=== PATIENT | female | born 1970 | race Caucasian/White ===

== ENCOUNTER 2019-01-11 10:24 | Inpatient (IN) | payer BC ==
[2019-01-05 12:31] VITALS: BMI 44.8
[~2019-01-11 10:24] MED LIST: BUPIVACAINE HCL/PF 0.25% (2.5MG/ML) 10 ML VIAL IJ ONE
[2019-01-11] MEDS ORDERED: BUPIVACAINE HCL/PF 2.5 MG/ML - 30 ML VIAL IJ ONE (12:24)
[2019-01-11] MEDS ORDERED: BUPIVACAINE HCL/PF (5 MG/ML) 30 ML VIAL IJ ONE (12:29)
[2019-01-11] MEDS ORDERED: MIDAZOLAM HCL 2 MG/2 ML SINGLE DOSE VIAL ONE (12:29)
[2019-01-11] MEDS ORDERED: DESFLURANE GAS 240 ML BOTTLE IH ONE (12:47)
[2019-01-11] MEDS ORDERED: ROCURONIUM BROMIDE 50 MG/5 ML VIAL ONE ×2 (12:48→14:11)
[2019-01-11] MEDS ORDERED: LIDOCAINE HCL/PF 2% SDV 5ML VIAL ONE (12:48)
[2019-01-11] MEDS ORDERED: fentaNYL CITRATE 250 MCG/5 ML VIAL ONE (12:48)
[2019-01-11] MEDS ORDERED: DEXAMETHASONE SOD PHOSPHATE 4 MG/1 ML VIAL ONE (13:26)
[2019-01-11] MEDS ORDERED: ONDANSETRON 4 MG/2 ML VIAL ONE (13:26)
[2019-01-11] MEDS ORDERED: KETOROLAC TROMETHAMINE 30 MG/1 ML VIAL ONE (13:26)
[2019-01-11] MEDS ORDERED: ceFAZolin SODIUM 1 GM VIAL ONE (13:26)
[2019-01-11] MEDS ORDERED: GLYCOPYRROLATE 0.2 MG/1 ML VIAL ONE ×3 (14:04)
[2019-01-11] MEDS ORDERED: NEOSTIGMINE METHYLSULFATE 0.5 MG/ML - 10 ML MDV ONE (14:04)
[2019-01-11] MEDS ORDERED: LIDOCAINE HCL 2% 100 MG/5 ML DISP.SYRIN ONE (14:35)
[2019-01-11] MEDS ORDERED: BUPIVACAINE HCL/PF 0.25% (2.5MG/ML) 10 ML VIAL IJ ONE (14:49)
[2019-01-11] MEDS ORDERED: ONDANSETRON 4 MG/2 ML VIAL IVPUSH PRN (15:11)
[2019-01-11] MEDS ORDERED: morphine CARPU-JECT 2 MG/1 ML DISP.SYRIN IVPUSH PRN (15:13)
[2019-01-11] MEDS ORDERED: METOCLOPRAMIDE HCL INJECTION 10 MG/2 ML VIAL IVPUSH PRN (15:14)
[2019-01-11] MEDS ORDERED: SODIUM CHLORIDE 1,000 ML IV SCH (15:15)
--- NOTE | 2019-01-11 15:22 | OP ---
Operative Note - Note: Operative Date: 01/11/19 Pre-Operative Diagnosis: Morbid Obesity Operation: Laparoscopic Vertical Sleeve Gastrectomy. Wedge Biopsy of left lobe of liver. Laparoscopic lysis of adhesions. Diagnostic Laparoscopy Findings: Greater curve sleeve gastrectomy performed with #[address] Wedge biopsy performed on enlarged left lobe of liver Adhesions lysed laparoscopically in epigastrium and left upper quadrant Post-Operative Diagnosis: Same as Pre-op (Hepatomegaly; Abdominal adhesions) Surgeon: Arden Brown Sofa Inspector: Bill Graham Anesthesia: General Specimens Removed: Greater curve of stomach. Wedge biopsy of left lobe of liver Estimated Blood Loss (mls): 50 Operative Report Dictated: Yes
[2019-01-11] MEDS ORDERED: PROMETHAZINE HCL 25 MG/1 ML VIAL IVPB PRN (15:33)
[2019-01-11] MEDS ORDERED: METOCLOPRAMIDE HCL INJECTION 10 MG/2 ML VIAL IVPUSH ONE (16:10)
[2019-01-11 16:56] LABS: ALBUMIN 3.8 g/dl (3.4-5.0); BILIRUBIN,TOTAL 0.7 mg/dl (0.2-1); CALCIUM 8.8 mg/dl (8.5-10); CREATININE 0.7 mg/dl (0.55-1.3); POTASSIUM 4.4 mmol/L (3.5-5.1)
[2019-01-11 17:51] LABS: HEMATOCRIT 44.2 % (32.4-45.2); HEMOGLOBIN 14.6 GM/dL (10.7-15.3); MCH 30.1 pg (25.7-33.7); MEAN CELL VOLUME 91.3 fl (80-96); MEAN PLT VOLUME 8.4 fl (7.5-11.1); PLATELET COUNT 210 K/MM3 (134-434); RBC 4.84 M/mm3 (3.60-5.2); RDW 13.8 % (11.6-15.6); WHITE BLOOD COUNT 14.4 K/mm3 (4.0-10.0)
[2019-01-11] MEDS ORDERED: HYDROmorphone HCL CARPU-JECT 1 MG/1 ML DISP.SYRIN IVPB PRN (18:25)
[2019-01-11] MEDS: ENOXAPARIN NA (PORCINE) 40 MG/0.4 ML DISP.SYRIN SQ SCH (21:45)
[2019-01-11] MEDS: FAMOTIDINE 20 MG/50 ML IVPB 20 MG/50 ML MG IVPB SCH (21:45)
[2019-01-12 09:07] LABS: ALBUMIN 3.4 g/dl (3.4-5.0); BILIRUBIN,TOTAL 0.8 mg/dl (0.2-1); CALCIUM 8.5 mg/dl (8.5-10); CREATININE 0.5 mg/dl (0.55-1.3); POTASSIUM 4.5 mmol/L (3.5-5.1); TOT PROT 6.4 g/dl (6.4-8.2)
[2019-01-12] MEDS: ENOXAPARIN NA (PORCINE) 40 MG/0.4 ML DISP.SYRIN SQ SCH (09:25)
[2019-01-12] MEDS: FAMOTIDINE 20 MG/50 ML IVPB 20 MG/50 ML MG IVPB SCH (09:25)
[2019-01-12 10:22] VITALS: BP 142/63; PULSE 60; TEMP 98.7
[2019-01-12 10:33] LABS: MCHC 33.2 g/dl (32.0-36.0); MEAN PLT VOLUME 8.6 fl (7.5-11.1); RDW 13.8 % (11.6-15.6)
[2019-01-12 10:36] LABS: HEMATOCRIT 41.4 % (32.4-45.2); HEMOGLOBIN 13.8 GM/dL (10.7-15.3); MCH 30.4 pg (25.7-33.7); MEAN CELL VOLUME 91.5 fl (80-96); PLATELET COUNT 205 K/MM3 (134-434); RBC 4.52 M/mm3 (3.60-5.2); WHITE BLOOD COUNT 12.9 K/mm3 (4.0-10.0)
[2019-01-12] MEDS ORDERED: ACETAMINOPHEN 325 MG TABLET (FP) PO PRN (12:10)
[2019-01-12] MEDS ORDERED: oxyCODONE HCL 5 MG TABLET PO PRN (12:10)
[2019-01-12] MEDS ORDERED: SODIUM CHLORIDE 1,000 ML IV SCH (12:15)
--- NOTE | 2019-01-12 12:16 | PN ---
Progress Note (short form) - Note Progress Note: POD#1 Afebrile; VSS Pt OOB in chair No N/V Tolerating PO clear liquids-2 oz po tid UGI- no leak, no obstruction WBC-12.9 (decreased) H/H-13.8/41.4 (stable) P- PO clear liquids- 2 oz po tid D/C pt home- instructions given to pt and F/U in office 01/20/2019
--- NOTE | 2019-01-12 17:54 | OP ---
DATE OF OPERATION: 01/11/2019 PREOPERATIVE DIAGNOSIS: Morbid obesity. POSTOPERATIVE DIAGNOSES: 1. Morbid obesity. 2. Hepatomegaly. 3. Abdominal adhesion. PROCEDURE PERFORMED: 1. Laparoscopic vertical sleeve gastrectomy. 2. Wedge biopsy of the left lobe of the liver. 3. Laparoscopic lysis of adhesions. 4. Diagnostic laparoscopy. OPERATING SURGEON: Arden Brown MD DIETARY SERVICE AIDE: Bill Graham MD ANESTHESIA: General. OPERATIVE PROCEDURE: The patient was brought in to the operating room, placed on the OR table in the supine position. All precautions were taken initially including padding for the back and the feet, and Venodyne boots were placed on both lower extremities. At that point, the abdomen was prepped and draped in the usual manner. A Veress needle was placed in the left upper quadrant and a pneumoperitoneum established. Under direct vision, a number 5 bladeless trocar was placed in the left upper quadrant. Through that trocar, a laparoscopic camera was placed. Immediately upon placing the camera, there was noted to be a large amount of adhesions from the patient's previous surgery. There were adhesions between the omentum and the anterior abdominal wall in the midline in the epigastrium and also in the left upper quadrant. Because of that, a number 5 bladeless trocar was then placed in the right upper quadrant. The adhesions were lysed with blunt dissection with the camera itself. Once they were cleared of the midline, a number 15 bladeless trocar was placed in the midline in the supraumbilical position. This was followed by a number 5 bladeless trocar in the left upper quadrant. The adhesions in the left upper quadrant were then lysed with a laparoscopic instrument, mostly bluntly, but also with a laparoscopic LigaSure device. Once these were completely free and the left upper quadrant port was now free, attention was directed to the liver. A Leighton liver retractor was then placed in the epigastrium to retract left lobe of liver. The left lobe was noted to be extremely enlarged and did not have a smooth appearance like normal. It was decided, therefore, that a biopsy would be performed. The LigaSure device was used to take a triangular-shaped wedge of liver on the inferior surface of the left lobe of liver. This was sent off the field as specimen to Pathology. The parenchyma had minor bleeding that was easily controlled with the LigaSure device. The patient was then placed in a 20-degree reverse Trendelenburg position by Anesthesia. The pylorus was noted on the distal stomach, and from here, 6 cm was measured proximally. At this juncture, the operating surgeon lifted the stomach toward the anterior abdominal wall as the assistant guest services manager surgeon retracted the gastrocolic ligament inferiorly. The LigaSure device was used to dissect the gastrocolic ligament off the greater curve of the stomach. This continued in a superior and vertical direction until a final short gastric vessel in left upper quadrant was divided between the superior pole of the spleen and the proximal fundus. At this juncture, Anesthesia advanced a number 36 bougie. With the bougie held along the lesser curvature, a series of caryl were performed, with the first 2 being black load caryl 6 cm in length along the bougie. This was followed by a series of purple caryl, also 6 cm in length and also along the bougie, until the final staple was fired in the left upper quadrant, and the greater curve was now completely detached from the lesser curve. It should be noted that prior to firing each staple, both the anterior and posterior ramos were checked that they were equal, and then the area of the esophagogastric junction, approximately 1 to 1.5 cm of serosa remained on the anterior and posterior surfaces. At this juncture, saline was placed around the staple line, and Anesthesia inserted air into the bougie, which showed the entire stomach distended down to the pylorus. No obstruction and no leaks were noted. At this juncture, the resected greater curve of stomach was removed through the number 15 trocar site and sent off the field as specimen to Pathology. The number 15 trocar site was then closed with endo-closure device to prevent internal hernia and prevent bleeding. Under direct vision, all trocars removed and pneumoperitoneum released. All trocar sites received 0.25% Marcaine, were closed with 4-0 Biosyn in subcuticular fashion. The number 15 trocar site was first closed with 2-0 Vicryl in the subcutaneous tissue, followed by 4-0 Biosyn in subcuticular fashion. Dressings were applied. Patient awoke from anesthesia and transferred out of the operating room to the recovery room in stable condition. Anesthesia in the case was general. Surgeon: Dr. Brown. Revenue Officer: Dr. Graham. Expected blood loss: 50 mL. Patient transferred to recovery room in stable condition. Vidya [id number]
--- NOTE | 2019-01-13 10:30 | PATH ---
Surgical Pathology Report Patient Name: KIM CIFUENTES Med. Rec. #: [id number] /Age/Gender: 1970 (Age: 48) / F Account: [id number] Location: [facility] MED-SURG Taken: 01/11/2019 Received: 01/11/2019 Reported: 01/13/2019 Physicians: Arden Brown M.D. Specimen(s) Received A: GREATER CURVATURE STOMACH B: LIVER BIOPSY Clinical History Morbid obesity Final Diagnosis A. GREATER CURVATURE STOMACH, LAPAROSCOPIC VERTICAL SLEEVE GASTRECTOMY: SEGMENT OF STOMACH WITH CHRONIC GASTRITIS. IMMUNOSTAINING IS NEGATIVE FOR H. PYLORI ORGANISMS. POSITIVE FOR INTESTINAL METAPLASIA. B. LIVER, BIOPSY: LIVER TISSUE WITH STEATOSIS (20%), DIFFUSE. NO HISTOLOGIC EVIDENCE OF HEPATITIS. NO INCREASE IN FIBROSIS (TRICHROME STAIN) OR IRON (IRON STAIN) DEPOSITION. Electronically Signed Guille Alexander M.D. Gross Description A. Received in formalin, labeled "greater curvature of stomach," is a 68 gram, 17.0 x 2.5 x 1.8 cm. portion of stomach with a stapled margin of resection. The serosa is best-michaud with minimal attached fat. The mucosa is best-pink with normal folds. No mucosal masses are identified. Induction Machine Setter sections are submitted in one cassette. B. Received in formalin labeled "liver biopsy," is a 2.3 x 1.7 x 0.6 cm aggregate of best, irregular portions of tissue, consistent with a liver biopsy. Induction Machine Setter sections are submitted in one cassette. /01/12/2019 saudi01/12/2019
--- NOTE | 2019-01-15 00:33 | DS ---
DATE OF ADMISSION: 01/11/2019 DATE OF DISCHARGE: 01/12/2019 HISTORY OF PRESENT ILLNESS AND HOSPITAL COURSE: The patient is a 48-year-old woman with a history of morbid obesity for many years despite multiple attempts at dietary weight loss. She received nutritional and psychological and medical clearances prior to being admitted for elective sleeve gastrectomy surgery. The patient was admitted to [facility] on January 11, 2019, where a laparoscopic vertical sleeve gastrectomy was performed. The details of the procedure are described in the operative note of that day. Postoperatively, the patient was sent to recovery room where she was stabilized and sent to the second floor nursing station. She remained there overnight, had no signs of any nausea or vomiting, and had normal vital signs through the night. On the morning of January 12, 2019, she was sent to x-ray where a Gastrografin swallow showed no signs of leakage from the staple line and no obstruction. She returned to her room where she tolerated 2 ounces of clear liquid well. The patient was given full instructions for discharge as she was ambulating well and had very minimal pain. She was instructed to return to the bariatric office in 8 days for first postop visit. Vidya [id number]
== END 2019-01-12 12:30 | disposition home or self-care (01) | DRG 621 ==
LOC: FM/S 10:24
PROVIDERS: ADMIT Surgery; ATTEND Surgery
PROC: 0FB24ZX Excision of Left Lobe Liver, Percutaneous Endoscopic Approach, Diagnostic (ICD-10-PCS; 2019-01-11)
PROC: 0DNW4ZZ Release Peritoneum, Percutaneous Endoscopic Approach (ICD-10-PCS; 2019-01-11)
PROC: 0WJP4ZZ Inspection of Gastrointestinal Tract, Percutaneous Endoscopic Approach (ICD-10-PCS; 2019-01-11)
PROC: 0DB64Z3 Excision of Stomach, Percutaneous Endoscopic Approach, Vertical (ICD-10-PCS; principal; 2019-01-11 13:35)
DX: E66.01 Morbid (severe) obesity due to excess calories (principal); Z68.41 Body mass index [BMI] 40.0-44.9, adult; K66.0 Peritoneal adhesions (postprocedural) (postinfection); R16.0 Hepatomegaly, not elsewhere classified
CPT/HCPCS: 36415; 74241-TC-FY; 80053; 85027; 88305-TC; 88313-TC; 88342-TC; 94760; J7030

== ENCOUNTER 2020-08-21 09:22 | Inpatient (IN) | payer BC ==
[2020-08-16 11:31] VITALS: BMI 42.0
[~2020-08-21 09:22] MED LIST changes: -BUPIVACAINE HCL/PF 0.25% (2.5MG/ML) 10 ML VIAL IJ ONE; +ceFAZolin SODIUM 1 GM VIAL IVPB ONE
[2020-08-21] MEDS ORDERED: BUPIVACAINE HCL/PF 0.25% (2.5MG/ML) 10 ML VIAL ONE (11:55)
[2020-08-21] MEDS ORDERED: MIDAZOLAM HCL 2 MG/2 ML SINGLE DOSE VIAL ONE (12:26)
[2020-08-21] MEDS ORDERED: fentaNYL CITRATE 250 MCG/5 ML VIAL ONE (12:57)
[2020-08-21] MEDS ORDERED: ROCURONIUM BROMIDE 50 MG/5 ML VIAL ONE (12:57)
[2020-08-21] MEDS ORDERED: PROPOFOL 20 ML ONE ×2 (12:57)
[2020-08-21] MEDS ORDERED: DEXAMETHASONE SOD PHOSPHATE 4 MG/1 ML VIAL ONE (12:57)
[2020-08-21] MEDS ORDERED: ONDANSETRON 4 MG/2 ML VIAL ONE ×2 (12:57→16:26)
[2020-08-21] MEDS ORDERED: CLINDAMYCIN PHOSPHATE 600 MG/4 ML VIAL ONE (13:03)
[2020-08-21] MEDS ORDERED: CLINDAMYCIN PHOSPHATE 600 MG/4 ML VIAL IVPB ONE (13:37)
[2020-08-21] MEDS ORDERED: DESFLURANE GAS 240 ML BOTTLE IH ONE (14:16)
[2020-08-21] MEDS ORDERED: GLYCOPYRROLATE 0.2 MG/1 ML VIAL ONE (15:02)
[2020-08-21] MEDS ORDERED: NEOSTIGMINE METHYLSULFATE 0.5 MG/1 ML - 10 ML MDV ONE (15:03)
[2020-08-21] MEDS ORDERED: KETOROLAC TROMETHAMINE 30 MG/1 ML VIAL ONE (15:12)
[2020-08-21] MEDS ORDERED: ONDANSETRON 4 MG/2 ML VIAL IVPUSH PRN (15:31)
[2020-08-21] MEDS ORDERED: HYDROmorphone HCl 2 MG/ML VIAL IVPB PRN ×2 (15:35)
[2020-08-21] MEDS ORDERED: HYDROmorphone HCl 2 MG/ML VIAL IVPUSH PRN (15:41)
[2020-08-21] MEDS ORDERED: ACETAMINOPHEN 1000 MG/100 ML VIAL (NON FORMULARY) IVPB PRN (15:43)
[2020-08-21] MEDS ORDERED: SODIUM CHLORIDE 1,000 ML IV SCH (15:45)
[2020-08-21] MEDS ORDERED: FAMOTIDINE 20 MG/50 ML IVPB 20 MG/50 ML MG IVPB ONE (15:55)
[2020-08-21] MEDS ORDERED: METOCLOPRAMIDE HCL INJECTION 10 MG/2 ML VIAL ONE (15:55)
[2020-08-21] MEDS: METOCLOPRAMIDE HCL INJECTION 10 MG/2 ML VIAL IVPUSH SCH ×2 (16:10→21:49)
[2020-08-21] MEDS ORDERED: FAMOTIDINE 20 MG PREMIXED IVPB IVPB ONE (16:15)
[2020-08-21 16:23] LABS: HEMATOCRIT 40.4 % (32.4-45.2); HEMOGLOBIN 13.8 GM/dl (10.7-15.3); MCH 31.9 pg (25.7-33.7); MEAN CELL VOLUME 93.7 fl (80-96); MEAN PLT VOLUME 8.1 fl (7.5-11.1); PLATELET COUNT 197 K/MM3 (134-434); RBC 4.32 M/mm3 (3.60-5.2); RDW 12.4 % (11.6-15.6)
[2020-08-21] MEDS ORDERED: HYDROmorphone HCL 0.5 MG/0.5 ML SYRINGE ONE (16:26)
[2020-08-21 16:33] LABS: ALBUMIN 3.9 g/dl (3.4-5.0); BILIRUBIN,TOTAL 0.5 mg/dl (0.2-1); CALCIUM 8.4 mg/dl (8.5-10); CREATININE 0.7 mg/dl (0.55-1.3); POTASSIUM 4.1 mmol/L (3.5-5.1); TOT PROT 6.8 g/dl (6.4-8.2)
[2020-08-21] MEDS: FAMOTIDINE 20 MG/50 ML IVPB 20 MG/50 ML MG IVPB SCH (21:49)
[2020-08-21 22:28] LABS: HEMATOCRIT 38.1 % (32.4-45.2); HEMOGLOBIN 12.9 GM/dl (10.7-15.3); MCH 31.5 pg (25.7-33.7); MCHC 33.8 g/dl (32.0-36.0); MEAN CELL VOLUME 93.3 fl (80-96); MEAN PLT VOLUME 8.7 fl (7.5-11.1); PLATELET COUNT 160 K/MM3 (134-434); RBC 4.08 M/mm3 (3.60-5.2); RDW 12.5 % (11.6-15.6); WHITE BLOOD COUNT 10.4 K/mm3 (4.0-10.8)
[2020-08-21 22:48] LABS: ALBUMIN 3.5 g/dl (3.4-5.0); BILIRUBIN,TOTAL 0.7 mg/dl (0.2-1); CALCIUM 8.3 mg/dl (8.5-10); CREATININE 0.6 mg/dl (0.55-1.3); POTASSIUM 4.3 mmol/L (3.5-5.1); TOT PROT 6.3 g/dl (6.4-8.2)
[2020-08-22] MEDS: METOCLOPRAMIDE HCL INJECTION 10 MG/2 ML VIAL IVPUSH SCH ×2 (04:06→09:48)
[2020-08-22 07:45] LABS: HEMOGLOBIN 12.1 GM/dl (10.7-15.3); MCH 30.7 pg (25.7-33.7); MCHC 32.8 g/dl (32.0-36.0); MEAN CELL VOLUME 93.5 fl (80-96); MEAN PLT VOLUME 7.9 fl (7.5-11.1); PLATELET COUNT 203 K/MM3 (134-434); RBC 3.96 M/mm3 (3.60-5.2); RDW 12.3 % (11.6-15.6)
[2020-08-22 08:02] LABS: ALBUMIN 3.4 g/dl (3.4-5.0); BILIRUBIN,TOTAL 0.6 mg/dl (0.2-1); CALCIUM 8.4 mg/dl (8.5-10); CREATININE 0.6 mg/dl (0.55-1.3); POTASSIUM 3.7 mmol/L (3.5-5.1); TOT PROT 5.8 g/dl (6.4-8.2)
[2020-08-22] MEDS: FAMOTIDINE 20 MG/50 ML IVPB 20 MG/50 ML MG IVPB SCH (09:47)
[2020-08-22 14:24] VITALS: BP 123/61; PULSE 58; TEMP 98
== END 2020-08-22 15:12 | disposition home or self-care (01) | DRG 621 ==
LOC: FM/S 09:22
PROVIDERS: ADMIT Surgery; ATTEND Surgery
PROC: 0DNW4ZZ Release Peritoneum, Percutaneous Endoscopic Approach (ICD-10-PCS; 2020-08-21)
PROC: 0FB24ZX Excision of Left Lobe Liver, Percutaneous Endoscopic Approach, Diagnostic (ICD-10-PCS; 2020-08-21)
PROC: 0DB64Z3 Excision of Stomach, Percutaneous Endoscopic Approach, Vertical (ICD-10-PCS; principal; 2020-08-21 13:50)
DX: E66.01 Morbid (severe) obesity due to excess calories (principal); Z68.41 Body mass index [BMI] 40.0-44.9, adult; R16.0 Hepatomegaly, not elsewhere classified; K66.0 Peritoneal adhesions (postprocedural) (postinfection); E78.5 Hyperlipidemia, unspecified
CPT/HCPCS: 36415; 74240-TC-FY; 80053; 85027; 86850; 86900; 86901; 88305-TC; 94760; J0131